=== PATIENT | female | born 1940 | race Caucasian/White ===

== ENCOUNTER 2019-08-13 10:37 | Emergency (ER) | payer MEDICARE ==
[2019-08-13 10:57] VITALS: BP 175/82; PULSE 68; O2SAT 99
--- NOTE | 2019-08-13 11:40 | ERPHSYRPT ---
- History of Present Illness Time Seen by Provider: 08/13/19 11:00 Source: patient Exam Limitations: no limitations Patient Subjective Stated Complaint: Pt c/o of pain in her right leg when she walked yesterday, she then found a lump to the medial distal upper leg that was painful to touch, it does not hurt to walk today but it does hurt to touch, she never noticed any redness or heat coming from it Triage Nursing Assessment: Pt walked into the ER with a stable gait, denies pain on walking, pain to lump on right upper medial leg when touched, area in not red or warm to touch, hypertensive, pulses normal, denies any othe issues at this juliano Physician History: 78 y/o white female presents with tenderness to right medial thigh. noticed yesterday. very localized and superficial. pt concerned about a "blood clot" Method of Injury: other (no injury) Occurred: yesterday Severity of Pain-Max: mild Severity of Pain-Current: mild Modifying Factors: Improves With: other (pressure) Allergies/Adverse Reactions: cephalexin [From Keflex] Allergy (Verified 08/13/19 10:59) hydrocodone Allergy (Verified 08/13/19 10:59) morphine Allergy (Verified 08/13/19 10:59) Penicillins Allergy (Verified 08/13/19 10:59) Sulfa (Sulfonamide Antibiotics) Allergy (Verified 08/13/19 10:59) Home Medications: Amlodipine Besylate 5 mg PO DAILY 08/13/19 [History] Atorvastatin Calcium 20 mg PO DAILY 08/13/19 [History] Clopidogrel Bisulfate [Clopidogrel] 75 mg PO DAILY 08/13/19 [History] Furosemide 20 mg [Lasix 20 mg] 20 mg PO 3XW 08/13/19 [History] Isosorbide Mononitrate [Isosorbide Mononitrate ER] 30 mg PO DAILY 08/13/19 [ History] Levothyroxine Sodium 50 mcg PO DAILY 08/13/19 [History] Metoprolol Succinate 50 mg [Toprol Xl 50 MG] 50 mg PO DAILY 08/13/19 [ History] Nortriptyline HCl 50 mg PO HS 08/13/19 [History] - Review of Systems Constitutional: No Symptoms Eyes: No Symptoms Ears, Nose, & Throat: No Symptoms Respiratory: No Symptoms Cardiac: No Symptoms Abdominal/Gastrointestinal: No Symptoms Genitourinary Symptoms: No Symptoms Musculoskeletal: No Symptoms Skin: No Symptoms Neurological: No Symptoms Psychological: No Symptoms Endocrine: No Symptoms Hematologic/Lymphatic: No Symptoms Immunological/Allergic: No Symptoms All Other Systems: Reviewed and Negative - Past Medical History Pertinent Past Medical History: Yes Neurological History: No Pertinent History ENT History: No Pertinent History Cardiac History: Coronary Artery Disease, High Cholesterol, Hypertension Endocrine Medical History: No Pertinent History Musculoskeletal History: No Pertinent History GI Medical History: No Pertinent History History: Other Psycho-Social History: No Pertinent History Female Reproductive Disorders: No Pertinent History Other Medical History: concusion, prolapsed bladder - Past Surgical History Past Surgical History: Yes Cardiac: Cardiac Stent Respiratory: No Pertinent History Gastrointestinal: No Pertinent History Genitourinary: No Pertinent History Musculoskeletal: No Pertinent History Female Surgical History: Hysterectomy, Tubal Ligation - Social History Smoking Status: Never smoker Exposure to second hand smoke: No Drug Use: none Patient Lives Alone: No - Nursing Vital Signs Nursing Vital Signs: Initial Vital Signs Temperature 98.5 F 08/13/19 10:44 Pulse Rate 68 08/13/19 10:44 Blood Pressure 175/82 08/13/19 10:44 O2 Sat by Pulse Oximetry 99 08/13/19 10:44 Pain Scale Pain Intensity 0 - Physical Exam General Appearance: no apparent distress, alert, anxiety Eyes, Ears, Nose, Throat Exam: normal ENT inspection, moist mucous membranes Neck Exam: normal inspection, non-tender, supple, full range of motion Cardiovascular/Respiratory Exam: normal breath sounds, regular rate/rhythm, no respiratory distress Gastrointestinal/Abdominal Exam: non-tender Back Exam: normal inspection, normal range of motion, No CVA tenderness, No vertebral tenderness Hips Exam: bilateral: non-tender, normal inspection, normal range of motion Legs Exam: right leg: normal inspection, normal range of motion, no evidence of injury, soft tissue tenderness (localized right medial thigh), left leg: non- tender Knees Exam: bilateral knee: non-tender, normal inspection, normal range of motion, no evidence of injury Ankle Exam: bilateral ankle: non-tender, normal inspection, normal range of motion, no evidence of injury Foot Exam: bilateral foot: non-tender, normal inspection, normal range of motion , no evidence of injury Neuro/Tendon Exam: normal sensation, normal motor functions, normal tendon functions Mental Status Exam: alert, oriented x 3, cooperative Skin Exam: normal color, warm SpO2 Interpretation: normal SpO2: 99 O2 Delivery: Room Air Ordered Tests: Active Orders 24 hr Category Date Time Status D-DIMER QUANTITATION Stat Lab 08/13/19 11:40 Completed Lab/Rad Data: Laboratory Results 08/13/19 Range/Units 11:40 D-Dimer 590 H* (215-500) ng/mL - Progress Progress: unchanged Progress Note: 08/13/19 12:12 i reviewed the result of the mildly elevated ddimer. my clinical judgement of low likelihood of a dvt was given to pt. i did also tell her without the venous doppler i could not be 100% certain it was not a dvt. i offered her this study. i discussed alternatives to her. i discussed risks with her and she declines. Counseled pt/family regarding: lab results, diagnosis, need for follow-up - Departure Departure Disposition: Home Clinical Impression: Superficial phlebitis of right leg Condition: Stable Critical Care Time: No Referrals: VITO HANSON NP [Primary Care Provider] - Additional Instructions: warm compresses/heating pad on warm setting to area 2 times daily but not directly on skin. ibuprofen 400mg to 600mg orally with food 3 times daily. follow up with primary doctor for further management
== END 2019-08-13 12:22 | disposition home or self-care (01) ==
LOC: ED 10:37
DX: I80.01 Phlebitis and thrombophlebitis of superficial vessels of right lower extremity (principal); M79.651 Pain in right thigh; Z79.899 Other long term (current) drug therapy; I25.10 Atherosclerotic heart disease of native coronary artery without angina pectoris; E78.00 Pure hypercholesterolemia, unspecified; I10 Essential (primary) hypertension
CPT/HCPCS: 36415; 85379; 99283

== ENCOUNTER 2020-05-12 06:21 | Day surgery (SDC) | payer MEDICARE ==
[2020-05-12] MEDS ORDERED: Lactated Ringers 1,000 ML IV ONE (07:21)
[2020-05-12] MEDS ORDERED: Lactated Ringers 1,000 ML IV SCH (07:30)
[2020-05-12] MEDS ORDERED: DIPRIVAN 200 MG/20 ML IV ONE (07:45)
[2020-05-12] MEDS ORDERED: Ketamine HCl 50 MG/ML ONE (07:45)
--- NOTE | 2020-05-12 09:45 | OP ---
SURGERY DATE/TIME: 05/12/2020 0807 PREOPERATIVE DIAGNOSIS: Dysphagia. POSTOPERATIVE DIAGNOSES: 1) Hiatal hernia. 2) Benign appearing esophageal stricture. 3) Gastritis. PROCEDURE: Esophagogastroduodenoscopy. SURGEON: Dr. Miller. ANESTHESIA: Medications were given by the anesthesia department. BRIEF HISTORY: The patient is a 79 year old white female presenting for endoscopic evaluation. She reports over ten year history of having problems with food sticking in the lower part of her chest. She recently had a meal with her relatives after which she had to cough up the food bolus prompting her to have to come in to be seen. The patient was appraised of the risks of the procedure including the risk of perforation, phlebitis, untoward reaction to medication, bleeding and missed lesions. The patient verbalized her understanding and desired to have the procedure performed. DESCRIPTION OF PROCEDURE: The patient was given the medications by the anesthesia department. She had continuous pulse oximetry, ECG monitoring, intermittent blood pressure monitoring and tidal CO2 monitoring during the examination. She was placed in the left lateral decubitus position. A bite block was placed. The flexible Olympus gastroscope was used to intubate the oropharynx. A view of the larynx was obtained and was normal. The scope was easily introduced in the esophagus which appeared to be normal to the gastroesophageal junction where there appeared to be a benign esophageal stricture. The scope was easily passed through this and stomach was entered. Normal gastric rugal folds were seen. The scope was passed along the greater curvature of the stomach to the antrum which appeared to be moderately erythematous. The scope was passed through the pylorus. The duodenum inspected and found to be essentially normal. The scope is withdrawn towards the stomach. Again, a retroflex view is obtained and revealed hiatal hernia. The scope is redirected towards the gastric antrum and biopsies were obtained to rule out the presence of Helicobacter pylori-type organisms. The scope was withdrawn towards the gastroesophageal junction where biopsies were obtained from several areas around the stricture to be sure that this was indeed benign. The scope is removed from the patient who tolerated the procedure well and was sent back to outpatient recovery in good condition.
[2020-05-12 10:55] VITALS: BP 153/77; PULSE 56; O2SAT 95
== END 2020-05-12 09:45 | disposition home or self-care (01) ==
LOC: SDC 06:21
PROVIDERS: ATTEND Family Medicine
DX: K44.9 Diaphragmatic hernia without obstruction or gangrene (principal); K22.2 Esophageal obstruction; K29.70 Gastritis, unspecified, without bleeding
CPT/HCPCS: 88305; 99100; J2704

== ENCOUNTER 2021-02-08 17:56 | Emergency (ER) | payer MEDICARE ==
[2021-02-08] MEDS ORDERED: BABY ASPIRIN 81 MG CHEW PO ONE (18:04)
[2021-02-08 18:09] VITALS: O2SAT 98
[2021-02-08] MEDS ORDERED: Sodium Chloride 0.9% 1000 ML 1,000 ML IV SCH (18:15)
[2021-02-08] MEDS ORDERED: BABY ASPIRIN 81 MG CHEW ONE (18:16)
[2021-02-08] MEDS ORDERED: Sodium Chloride 0.9% 1000 ML 1,000 ML ONE (18:16)
--- NOTE | 2021-02-08 18:19 | ERPHSYRPT ---
- History of Present Illness Time Seen by Provider: 02/08/21 18:16 Source: patient, family Exam Limitations: no limitations Patient Subjective Stated Complaint: Chest pain Triage Nursing Assessment: Patient brought back to ED via w/c and transferred self to bed. Patient A+O x3. Patient's skin pink, warm and dry. Patient complains of intermittent chest pain for the past few months a heaviness in the chest. Patient currently denies pain. Patient states she was checking her pulse because her HR felt low and it was 47. Lungs clear a/p marvin. 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 For last few days she was having off and on chest pain which lasted for few seconds and it comes and goes. Today when she was checking her blood pressure her pulse was found to be 45 she was also feeling weak and dizzy lightheaded and had another episode of short spell of chest pain so she came to the emergency room. She denies any shortness of breath nausea vomiting diarrhea constipation headache syncopal episode. Timing/Duration: today Severity of Pain-Max: none Severity of Pain-Current: none Modifying Factors: Improves With: nothing Nitro Today/Relief: no nitro taken today Aspirin Treatment Today: no aspirin today Associated Symptoms: denies symptoms Allergies/Adverse Reactions: cephalexin [From Keflex] Allergy (Verified 02/08/21 17:59) hydrocodone Allergy (Verified 02/08/21 17:59) morphine Allergy (Verified 02/08/21 17:59) Penicillins Allergy (Verified 02/08/21 17:59) Sulfa (Sulfonamide Antibiotics) Allergy (Verified 02/08/21 17:59) Home Medications: Amlodipine Besylate 5 mg PO DAILY 08/13/19 [History] Atorvastatin Calcium 20 mg PO DAILY 08/13/19 [History] Clopidogrel Bisulfate [Clopidogrel] 75 mg PO DAILY 08/13/19 [History] Furosemide 20 mg [Lasix 20 mg] 20 mg PO 3XW 08/13/19 [History] Isosorbide Mononitrate [Isosorbide Mononitrate ER] 30 mg PO DAILY 08/13/19 [History] Levothyroxine Sodium 50 mcg PO DAILY 08/13/19 [History] Metoprolol Succinate 50 mg [Toprol Xl 50 MG] 50 mg PO DAILY 08/13/19 [History] Nortriptyline HCl 50 mg PO HS 08/13/19 [History] Hx Influenza Vaccination/Date Given: Yes Hx Pneumococcal Vaccination/Date Given: Yes Immunizations Up to Date: Yes Travel Risk - International Travel Have you traveled outside of the country in past 3 weeks: No - Coronavirus Screening Are you exhibiting any of the following symptoms?: No Close contact with a COVID-19 positive Pt in past 14-21 Days: No - Vaccine Status Have you recieved a Covid-19 vaccination: Yes 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: [employer] - Vaccination Dates Date of 2cond Vaccination (if applicable): 12/30/2020 - Review of Systems Constitutional: No Fever, No Chills Eyes: No Symptoms Ears, Nose, & Throat: No Symptoms Respiratory: No Cough, No Dyspnea Cardiac: Palpitations, No Chest Pain, No Edema, No Syncope Abdominal/Gastrointestinal: No Abdominal Pain, No Nausea, No Vomiting, No Diarrhea Genitourinary Symptoms: No Dysuria Musculoskeletal: No Back Pain, No Neck Pain Skin: No Rash Neurological: No Dizziness, No Focal Weakness, No Sensory Changes Psychological: No Symptoms Endocrine: No Symptoms All Other Systems: Reviewed and Negative - Past Medical History Pertinent Past Medical History: Yes Neurological History: Other ENT History: No Pertinent History Cardiac History: Coronary Artery Disease, High Cholesterol, Hypertension Respiratory History: Other Endocrine Medical History: Hypothyroidism Musculoskeletal History: No Pertinent History GI Medical History: GERD, Other History: Kidney Cancer, Other Psycho-Social History: No Pertinent History Female Reproductive Disorders: Other Other Medical History: concusion, prolapsed bladder, spot on L lung that doctor has been "watching". seeing neurologist "because waking up at night imaging things." having difficulty swallowing - Past Surgical History Past Surgical History: Yes Neuro Surgical History: No Pertinent History Cardiac: Cardiac Catheterization, Cardiac Stent Respiratory: No Pertinent History Gastrointestinal: Appendectomy Genitourinary: Other Musculoskeletal: No Pertinent History Female Surgical History: Hysterectomy, Tubal Ligation Other Surgical History: bladder tied up, partial kidney removal for kidney cancer L kidney, - Social History Smoking Status: Never smoker Exposure to second hand smoke: No Drug Use: none Patient Lives Alone: Yes - Nursing Vital Signs Nursing Vital Signs: Initial Vital Signs Pulse Rate 52 L 02/08/21 17:59 Respiratory Rate 18 02/08/21 17:59 Blood Pressure 159/70 02/08/21 17:59 O2 Sat by Pulse Oximetry 98 02/08/21 17:59 Pain Scale Pain Intensity 0 - Physical Exam General Appearance: no apparent distress, alert Eye Exam: PERRL/EOMI, eyes nml inspection Ears, Nose, Throat Exam: normal ENT inspection, moist mucous membranes Neck Exam: normal inspection, non-tender, supple Respiratory Exam: normal breath sounds, lungs clear, No respiratory distress Cardiovascular Exam: regular rate/rhythm, normal heart sounds, No edema Gastrointestinal/Abdomen Exam: soft, No tenderness, No mass Back Exam: normal inspection, No CVA tenderness, No vertebral tenderness Extremity Exam: normal inspection, normal range of motion Neurologic Exam: alert, oriented x 3, cooperative, normal mood/affect, nml cerebellar function, sensation nml, No motor deficits Skin Exam: normal color, warm, dry Lymphatic Exam: No adenopathy SpO2: 98 - Course Nursing assessment & vital signs reviewed: Yes EKG Interpreted by Me: Sinus Julio, NORMAL ST-T - Radiology Exams Chest X-ray Interpretation: Reviewed by me (cardiomegaly, no acute infiltrate) Ordered Tests: Active Orders 24 hr Category Date Time Status EKG-ER Only STAT Care 02/08/21 18:04 Active IV Insertion STAT Care 02/08/21 18:04 Active Oxygen-ED Only Nasal Cannula 2 lpm Care 02/08/21 18:04 Active CHEST 1 VIEW (PORTABLE) Stat Exams 02/08/21 18:04 Taken CBC W DIFF Stat Lab 02/08/21 18:12 Completed CMP Stat Lab 02/08/21 18:12 Completed TROPONIN Stat Lab 02/08/21 18:12 Completed Medication Summary Generic Name Dose Route Start Last Admin Trade Name Freq PRN Reason Stop Dose Admin Sodium Chloride 1,000 mls @ 50 mls/hr 02/08/21 18:15 02/08/21 18:17 Sodium Chloride 0.9% 1000 Ml IV 03/10/21 18:14 50 mls/hr .Q20H TERESA Administration Discontinued Medications Generic Name Dose Route Start Last Admin Trade Name Freq PRN Reason Stop Dose Admin Aspirin 81 mg 02/08/21 18:04 02/08/21 18:17 Baby Aspirin 81 Mg Chew PO 02/08/21 18:05 81 mg STAT ONE Administration Aspirin Confirm 02/08/21 18:16 Baby Aspirin 81 Mg Chew Administered 04/11/21 18:17 Dose 81 mg .ROUTE .STK-MED ONE Lab/Rad Data: Laboratory Result Diagrams 02/08/21 18:12 02/08/21 18:12 Laboratory Results 02/08/21 02/08/21 Range/Units 18:12 18:12 WBC 5.3 (4.0-10.5) K/mm3 RBC 3.69 L (4.1-5.4) M/mm3 Hgb 12.5 (12.0-16.0) gm/dl Hct 37.3 (35-47) % MCV 101.1 H (78-100) fl MCH 33.9 H (26-32) pg MCHC 33.5 (32-36) g/dl RDW 13.1 (11.5-14.0) % Plt Count 265 (150-450) K/mm3 MPV 10.2 (7.5-11.0) fl Gran % 60.6 (36.0-66.0) % Eos # (Auto) 0.14 (0-0.5) Absolute Lymphs (auto) 1.54 (1.0-4.6) Absolute Monos (auto) 0.41 (0.0-1.3) Lymphocytes % 28.9 (24.0-44.0) % Monocytes % 7.7 (0.0-12.0) % Eosinophils % 2.6 (0.00-5.0) % Basophils % 0.2 (0.0-0.4) % Absolute Granulocytes 3.22 (1.4-6.9) Basophils # 0.01 (0-0.4) Sodium 139 (137-145) mmol/L Potassium 4.5 (3.5-5.1) mmol/L Chloride 106 (98-107) mmol/L Carbon Dioxide 26 (22-30) mmol/L Anion Gap 12.1 (5-15) MEQ/L BUN 18 H (7-17) mg/dL Creatinine 1.25 H (0.52-1.04) mg/dL Estimated GFR 43.8 ML/MIN Glucose 113 H (74-106) mg/dL Calcium 9.3 (8.4-10.2) mg/dL Total Bilirubin 0.50 (0.2-1.3) mg/dL AST 27 (14-36) U/L ALT 15 (0-35) U/L Alkaline Phosphatase 69 (38-126) U/L Troponin I < 0.012 (0.000-0.034) ng/mL Serum Total Protein 7.6 (6.3-8.2) g/dL Albumin 4.3 (3.5-5.0) g/dL - Progress Progress: improved Air Movement: good Blood Culture(s) Obtained: No Antibiotics given: No Counseled pt/family regarding: lab results, diagnosis, need for follow-up, rad results - Departure Departure Disposition: Home Clinical Impression: Chest pain not due to acute coronary syndrome, Bradycardia with 41-50 beats per minute Condition: Stable Critical Care Time: Yes Critical Care Time(excluding separately billable procedures): Critical 30-74 mins Referrals: IFRAH TORRES [Primary Care Provider] - Instructions: Chest Pain (DC), Bradycardia (DC) Additional Instructions: Discharge/Care Plan ELDER ELLIS was seen on 02/08/21 in the Emergency Room. The patient was counseled regarding Diagnosis,Lab results, Imaging studies, need for follow up and when to return to the Emergency Room. Prescriptions given: Discharge Note I have spoken with the patient and/or caregivers. I have explained the patient's condition, diagnosis and treatment plan based on the information available to me at this time. I have answered the patient's and/or caregiver's questions and addressed any concerns. The patient and/or caregivers have as good understanding of the patient's diagnosis, condition and treatment plan as can be expected at this point. The vital signs have been stable. The patient's condition is stable and appropriate for discharge from the emergency department. The patient will pursue further outpatient evaluation with the primary care physician or other designated or consulting physician as outlined in the discharge instructions. The patient and/or caregivers are agreeable to this plan of care and follow-up instructions have been explained in detail. The patient and/or caregivers have received these instruction. The patient/and or caregivers are aware that any significant change in condition or worsening of symptoms should prompt an immediate return to this or the closest emergency department or call 911. ELDER ELLIS was seen on 02/08/21 n the Emergency Room. At that time you were treated for an emergent condition, during your visit Laboratory, Radiology and/or other procedures may have been ordered. It is very important that you follow-up with your Primary Care Physician IFRAH TORRES within the next 24-48 hours to review your Emergency Room visit and the final results of testing that was ordered. Some test results such as Urine Cultures, Blood Cultures, and other cultures if ordered will not be finalized for 24-48 hours. If you do not have a Primary Care Provider please call the medical records department at [phone] to obtain a copy of your results or you may sign into our patient portal to obtain these results by visiting us @ [email or web address] and completing the following steps: 1. Click on the Patient Portal link 2. Click the Patient Self Enrollment Link to complete the enrollment form and entering your 3. Once the enrollment form is completed you will receive an email with a temporary ID and password at the email address you provided. 4. Next choose a user name and password. Your user name must be at least 4 characters long and your password must be at least 4 characters long. 5. Choose a security question from the list and provide your answer to the question. If you already have signed into the Health Portal you may access your Health Care Information 23/05 by the following steps: 1. Login to our website @ [email or web address] 2. Enter your original user name and password. FAQS The [facility] Health Portal is an online tool that contains your Lab Results, Radiology Reports, Visit History, Discharge Instructions and Health Summary Lab and Radiology Results will not be available for 72 hours on the portal. The Portal is a secure site, passwords are encryted and URLs are re-written so they cannot be copied and pasted. You and authorized family members are the only ones who can access your Portal. Also there is a timeout feature that protects your information if you leave the Portal page open. If you have technical difficulty please use the Contact Us link on the page this will allow you to submit any questions you have regarding the Portal or you may contact the Medical Record Department at [phone] ext [phone]. Decrease metoprolol to 25 mg a day
[2021-02-08 18:29] LABS: Absolute Neutrophil Ct (ANC) 3.22 (1.4-6.9); BASOPHIL % 0.2 % (0.0-0.4); Basophil (Absolute #) 0.01 (0-0.4); Eosinophil % 2.6 % (0.00-5.0); Eosinophil (Absolute #) 0.14 (0-0.5); Hematocrit 37.3 % (35-47); Hemoglobin 12.5 gm/dl (12.0-16.0); Lymphocyte (Absolute #) 1.54 (1.0-4.6); Lymphocytes % 28.9 % (24.0-44.0); Mean Cell Volume 101.1 fl (78-100); Mean Corpuscular Hemoglobin 33.9 pg (26-32); Mean Corpuscular Hgb Concent. 33.5 g/dl (32-36); Mean Platelet Volume 10.2 fl (7.5-11.0); Monocyte (Absolute #) 0.41 (0.0-1.3); Monocytes % 7.7 % (0.0-12.0); Neutrophil % 60.6 % (36.0-66.0); Platelet Count 265 K/mm3 (150-450); Red Blood Count 3.69 M/mm3 (4.1-5.4); Red Cell Distribution Width 13.1 % (11.5-14.0); White Blood Count 5.3 K/mm3 (4.0-10.5)
[2021-02-08 18:51] LABS: ALBUMIN 4.3 g/dL (3.5-5.0); ALKALINE PHOSPHATASE 69 U/L (38-126); ANION GAP 12.1 MEQ/L (5-15); BLOOD UREA NITROGEN 18 mg/dL (7-17); CHLORIDE 106 mmol/L (98-107); Calcium 9.3 mg/dL (8.4-10.2); Carbon Dioxide 26 mmol/L (22-30); Creatinine 1 1.25 mg/dL (0.52-1.04); EST GLOMERULAR FILTRATION RATE 43.8 ML/MIN; Potassium 4.5 mmol/L (3.5-5.1); SGOT/AST 27 U/L (14-36); SGPT/ALT 15 U/L (0-35); SODIUM 139 mmol/L (137-145); TROPONIN < 0.012 ng/mL (0.000-0.034); Total Protein 7.6 g/dL (6.3-8.2)
[2021-02-08 18:53] LABS: Glucose 113 mg/dL (74-106)
[2021-02-08 19:05] VITALS: BP 139/65; PULSE 47
--- NOTE | 2021-02-09 08:51 | XRAY ---
Indication: Chest pain. Comparison: None Portable apical lordotic chest hyperinflated and clear with incidental tiny right upper lobe calcified granuloma. Heart borderline enlarged. 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 Impression: Nonacute chest with chronic features.
== END 2021-02-08 19:07 | disposition home or self-care (01) ==
LOC: ED 17:56
DX: I24.9 Acute ischemic heart disease, unspecified (principal); R07.9 Chest pain, unspecified; R00.1 Bradycardia, unspecified; Z79.899 Other long term (current) drug therapy; I25.10 Atherosclerotic heart disease of native coronary artery without angina pectoris; I10 Essential (primary) hypertension; E03.9 Hypothyroidism, unspecified; K21.9 Gastro-esophageal reflux disease without esophagitis; E78.00 Pure hypercholesterolemia, unspecified
CPT/HCPCS: 36000; 36415; 71045; 80053; 84484; 85025; 93005; 99284; 99291; A9270-GY

== ENCOUNTER 2021-09-20 15:13 | Observation (INO) | payer MEDICARE ==
[2021-09-20 16:11] LABS: Absolute Neutrophil Ct (ANC) 3.27 (1.4-6.9); BASOPHIL % 0.2 % (0.0-0.4); Basophil (Absolute #) 0.01 (0-0.4); Eosinophil % 1.7 % (0.00-5.0); Eosinophil (Absolute #) 0.08 (0-0.5); Hematocrit 39.4 % (35-47); Hemoglobin 13.2 gm/dl (12.0-16.0); Lymphocyte (Absolute #) 1.11 (1.0-4.6); Lymphocytes % 22.9 % (24.0-44.0); Mean Corpuscular Hemoglobin 33.5 pg (26-32); Mean Corpuscular Hgb Concent. 33.5 g/dl (32-36); Monocyte (Absolute #) 0.37 (0.0-1.3); Monocytes % 7.6 % (0.0-12.0); Neutrophil % 67.6 % (36.0-66.0); Platelet Count 236 K/mm3 (150-450); Red Blood Count 3.94 M/mm3 (4.1-5.4); Red Cell Distribution Width 12.1 % (11.5-14.0); White Blood Count 4.8 K/mm3 (4.0-10.5)
[2021-09-20 16:17] LABS: INR 1.04 (0.8-3.0); PROTIME 12.3 SECONDS (9.4-12.5)
[2021-09-20 16:20] LABS: PTT 29.2 SECONDS (25.1-36.5)
[2021-09-20 16:30] LABS: ALBUMIN 4.1 g/dL (3.5-5.0); ALKALINE PHOSPHATASE 87 U/L (38-126); ANION GAP 14.6 MEQ/L (5-15); BLOOD UREA NITROGEN 13 mg/dL (7-17); CHLORIDE 101 mmol/L (98-107); Calcium 9.1 mg/dL (8.4-10.2); Carbon Dioxide 28 mmol/L (22-30); Creatinine 1 0.94 mg/dL (0.52-1.04); EST GLOMERULAR FILTRATION RATE > 60.0 ML/MIN; Glucose 112 mg/dL (74-106); NT PRO BNP 390 pg/mL (0-1800); Potassium 3.8 mmol/L (3.5-5.1); SGOT/AST 17 U/L (14-36); SGPT/ALT 11 U/L (0-35); SODIUM 140 mmol/L (137-145); Total Protein 6.9 g/dL (6.3-8.2)
[2021-09-20] MEDS ORDERED: BABY ASPIRIN 81 MG CHEW PO ONE (17:08)
[2021-09-20] MEDS ORDERED: BABY ASPIRIN 81 MG CHEW ONE (17:14)
--- NOTE | 2021-09-20 17:26 | ERPHSYRPT ---
- History of Present Illness Time Seen by Provider: 09/20/21 15:37 Source: patient Exam Limitations: no limitations Patient Subjective Stated Complaint: blurred vision Triage Nursing Assessment: Patient brought into ED via w/c and transferred to be d with assist of 1. Patient A+O x3. Patient's skin pink, warm and dry. Patient's daughter reports her niece called her at 1423 and stated patient's left eye was drooping. Patient currently denies pain or discomfort. Patient's left eye noted to be drooping. Patient's daughter reports on Tuesday patient had some episodes of confusion and dizziness on she had a good day and on Tuesday she had a headache and double vision on Tuesday morning complains of double vision, but it had gotten better throughout the day. As this nurse was triaging patient was able to answer questions appropriately, but the more I was asking questions patient started slurring her speech and unable to give birthday correctly. Patient complains of nausea. Physician History: 80 years old female with history of hypertension, hyperlipidemia, hypothyroidism presented in the ER with chief complaint of diplopia. Patient reports having double vision off and on for the last 4 days with some confusion and dizziness along with headache. Symptoms recurred again around noon time and family noticed some left eye droop. Denies any difficulty speech, focal numbness tingling or weakness. No previous history of stroke. Timing/Duration: day(s) (4), intermittent, improved Severity: moderate Baseline/Normal Cognition: alert oriented x 3 Current Cognition: alert oriented x 3 Baseline Gait: walks w/o assistance Associated Symptoms: confusion, seizures, vision changes Allergies/Adverse Reactions: cephalexin [From Keflex] Allergy (Verified 09/20/21 20:37) hydrocodone Allergy (Verified 09/20/21 20:37) morphine Allergy (Verified 09/20/21 20:37) Penicillins Allergy (Verified 09/20/21 20:37) Sulfa (Sulfonamide Antibiotics) Allergy (Verified 09/20/21 20:37) Home Medications: Amlodipine Besylate 5 mg PO DAILY 08/13/19 [History] Atorvastatin Calcium 20 mg PO QHS 08/13/19 [History] Clopidogrel Bisulfate [Clopidogrel] 75 mg PO DAILY 08/13/19 [History] Furosemide 20 mg [Lasix 20 mg] 20 mg PO 3XW 08/13/19 [History] Isosorbide Mononitrate [Isosorbide Mononitrate ER] 30 mg PO DAILY 08/13/19 [History] Levothyroxine Sodium 50 mcg PO DAILY 08/13/19 [History] Nortriptyline HCl 50 mg PO HS 08/13/19 [History] Carvedilol 3.125 mg [Coreg 3.125 MG] 3.125 mg PO BID 09/20/21 [History] Cholecalciferol (Vitamin D3) [Vitamin D3] 25 mcg PO QHS 09/20/21 [History] Cyanocobalamin (Vitamin B-12) [Vitamin B12] 2,500 mcg PO QHS 09/20/21 [History] Escitalopram Oxalate 10 mg [Lexapro 10 MG] 10 mg PO QHS 09/20/21 [History] Ezetimibe 10 mg [Zetia 10 MG] 10 mg PO DAILY 09/20/21 [History] Ferrous Sulfate, Dried [Iron] 65 mg PO QHS 09/20/21 [History] Levetiracetam [Keppra] 750 mg PO BID 09/20/21 [History] Omeprazole 09/20/21 [History] Ubidecarenone [Coq10] 50 mg PO DAILY 09/20/21 [History] Hx Influenza Vaccination/Date Given: Yes Hx Pneumococcal Vaccination/Date Given: Yes Immunizations Up to Date: Yes Travel Risk - International Travel Have you traveled outside of the country in past 3 weeks: No - Coronavirus Screening Are you exhibiting any of the following symptoms?: No Close contact with a COVID-19 positive Pt in past 14-21 Days: No - Vaccine Status Have you recieved a Covid-19 vaccination: Yes 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: [employer] - Vaccination Dates Date of 2cond Vaccination (if applicable): 12/30/2020 - Review of Systems Constitutional: No Symptoms Eyes: Vision Changes, Double Vision Ears, Nose, & Throat: No Symptoms Respiratory: No Symptoms Cardiac: No Symptoms Abdominal/Gastrointestinal: No Symptoms Genitourinary Symptoms: No Symptoms Musculoskeletal: No Symptoms Skin: No Symptoms Neurological: Headache Psychological: No Symptoms Endocrine: No Symptoms Hematologic/Lymphatic: No Symptoms Immunological/Allergic: No Symptoms - Past Medical History Pertinent Past Medical History: Yes Neurological History: Other ENT History: No Pertinent History Cardiac History: Coronary Artery Disease, High Cholesterol, Hypertension Respiratory History: Other Endocrine Medical History: Hypothyroidism Musculoskeletal History: No Pertinent History GI Medical History: GERD, Other History: Kidney Cancer, Other Psycho-Social History: No Pertinent History Female Reproductive Disorders: Other Other Medical History: concusion, prolapsed bladder, spot on L lung that doctor has been "watching". seeing neurologist "because waking up at night imaging things." having difficulty swallowing - Past Surgical History Past Surgical History: Yes Neuro Surgical History: No Pertinent History Cardiac: Cardiac Catheterization, Cardiac Stent Respiratory: No Pertinent History Gastrointestinal: Appendectomy Genitourinary: Other Musculoskeletal: No Pertinent History Female Surgical History: Hysterectomy, Tubal Ligation Other Surgical History: bladder tied up, partial kidney removal for kidney cancer L kidney, - Social History Smoking Status: Never smoker Exposure to second hand smoke: No Drug Use: none Patient Lives Alone: Yes - Nursing Vital Signs Nursing Vital Signs: Initial Vital Signs Pulse Rate 54 L 09/20/21 15:52 Respiratory Rate 18 09/20/21 15:52 Blood Pressure 177/80 09/20/21 15:52 O2 Sat by Pulse Oximetry 97 09/20/21 15:52 Pain Scale Pain Intensity 0 - Jorge Coma Scale Best Eye Response (Jorge): (4) open spontaneously Best Verbal Response (Jorge): (5) oriented Best Motor Response ([place]): (6) obeys commands [place] Total: 15 - Physical Exam General Appearance: no apparent distress, alert Eye Exam: right eye: normal inspection, EOMI, left eye: abnormal EOM, other (Left eyelid droop/lid lag, sluggish movements on the medial side.), bilateral eye: PERRL Ears, Nose, Throat Exam: normal ENT inspection, TMs normal, pharynx normal Neck Exam: normal inspection, non-tender, supple, full range of motion Respiratory: normal breath sounds, lungs clear Cardiovascular: normal heart sounds, bradycardia Gastrointestinal: soft, normal bowel sounds Back Exam: normal inspection, normal range of motion Extremity Exam: normal inspection, normal range of motion, pelvis stable Mental Status: alert, oriented x 3, 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 Exam: normal hearing, normal speech Coordination/Gait: normal finger to nose Motor/Sensory: no sensory deficit, no pronator drift, weak motor strength LUE DTR: bicep (R): 2+, bicep (L): 2+, tricep (R): 2+, tricep (L): 2+, knee (R): 2+, knee (L): 2+ Skin Exam: normal color SpO2 Interpretation: normal SpO2: 97 O2 Delivery: Room Air - Course EKG Interpreted by Me: RATE (57), Sinus Rhythm, NORMAL AXIS, Left Bundle Branch Block, Non-specific ST Changes Ordered Tests: Medication Summary Discontinued Medications Generic Name Dose Route Start Last Admin Trade Name Freq PRN Reason Stop Dose Admin Acetaminophen 650 mg 09/20/21 20:28 Acetaminophen 325 Mg Tablet PO 10/20/21 20:27 Q4H PRN PRN PAIN AND/OR FEVER Albuterol/Ipratropium 3 ml 09/20/21 20:28 Ipratropium/Albuterol Sulfate 3 Ml Ampul.Neb IH 10/20/21 20:27 Q4HPRN PRN SHORTNESS OF BREATH/WHEEZING Amlodipine Besylate 5 mg 09/21/21 10:00 09/21/21 09:41 Amlodipine Besylate 5 Mg Tablet PO 10/21/21 09:59 5 mg DAILY TERESA Administration Aspirin 81 mg 09/20/21 17:08 09/20/21 17:16 Aspirin 81 Mg Tab.Chew PO 09/20/21 17:09 81 mg STAT ONE Administration Aspirin Confirm 09/20/21 17:14 Aspirin 81 Mg Tab.Chew Administered 09/20/21 17:15 Dose 81 mg .ROUTE .STK-MED ONE Aspirin 81 mg 09/21/21 10:00 09/21/21 09:41 Aspirin 81 Mg Tablet.Ec PO 10/21/21 09:59 81 mg DAILY TERESA Administration Carvedilol 3.125 mg 09/20/21 22:00 09/20/21 22:52 Carvedilol 3.125 Mg Tablet PO 09/20/21 22:01 3.125 mg ONCE ONE Administration Carvedilol 3.125 mg 09/21/21 10:00 09/21/21 09:42 Carvedilol 3.125 Mg Tablet PO 10/21/21 09:59 3.125 mg BID TERESA Administration Clopidogrel Bisulfate 75 mg 09/21/21 10:00 09/21/21 09:42 Clopidogrel Bisulfate 75 Mg Tablet PO 10/21/21 09:59 75 mg DAILY TERESA Administration Cyanocobalamin 2,500 mcg 09/20/21 22:00 09/20/21 22:50 Cyanocobalamin 500 Mcg Tablet PO 09/20/21 22:01 2,500 mcg ONCE ONE Administration Cyanocobalamin 2,500 mcg 09/21/21 22:00 Cyanocobalamin 500 Mcg Tablet PO 10/21/21 21:59 QHS TERESA Ezetimibe 10 mg 09/21/21 10:00 09/21/21 09:42 Ezetimibe 10 Mg Tab PO 10/21/21 09:59 10 mg DAILY TERESA Administration Escitalopram Oxalate 10 mg 09/20/21 22:00 09/20/21 22:52 Escitalopram Oxalate 10 Mg Tablet PO 09/20/21 22:01 10 mg ONCE ONE Administration Escitalopram Oxalate 10 mg 09/21/21 22:00 Escitalopram Oxalate 10 Mg Tablet PO 10/21/21 21:59 QHS TERESA Ferrous Sulfate 325 mg 09/21/21 22:00 Ferrous Sulfate 325 Mg Tablet PO 10/21/21 21:59 QHS TERESA Furosemide 20 mg 09/22/21 10:00 Furosemide 20 Mg Tablet PO 10/22/21 09:59 QOD TERESA Isosorbide Mononitrate 30 mg 09/21/21 10:00 09/21/21 09:42 Isosorbide Mononitrate 30 Mg Tab PO 10/21/21 09:59 30 mg DAILY TERESA Administration Levetiracetam 750 mg 09/20/21 22:00 09/20/21 22:51 Levetiracetam 500 Mg Tablet PO 09/20/21 22:01 750 mg ONCE ONE Administration Levetiracetam 250 mg 09/21/21 10:00 09/21/21 09:42 Levetiracetam 250 Mg Tablet PO 10/21/21 09:59 250 mg BID TERESA Administration Levetiracetam 500 mg 09/21/21 10:00 09/21/21 09:42 Levetiracetam 500 Mg Tablet PO 10/21/21 09:59 500 mg BID TERESA Administration Levothyroxine Sodium 50 mcg 09/21/21 10:00 09/21/21 09:42 Levothyroxine Sodium 50 Mcg Tablet PO 10/21/21 09:59 50 mcg DAILY TERESA Administration Miscellaneous Information 1 each 09/21/21 11:30 Medication Intervention 1 Each Each PO 10/21/21 11:29 .RN TO CHECK ON TERESA Miscellaneous Information 1 each 09/21/21 11:30 Medication Intervention 1 Each Each PO 10/21/21 11:29 .RN TO CHECK ON TERESA Nortriptyline HCl 50 mg 09/21/21 22:00 Nortriptyline Hcl 50 Mg Capsule PO 10/21/21 21:59 HS TERESA Pantoprazole Sodium 40 mg 09/21/21 10:00 Pantoprazole 40 Mg Vial IV 10/21/21 09:59 Q24H10 TERESA Pantoprazole Sodium 40 mg 09/21/21 10:00 09/21/21 09:48 Protonix (Pantoprazole) 40 Mg Tablet PO 10/21/21 09:59 40 mg DAILY TERESA Administration Simvastatin 20 mg 09/21/21 22:00 Simvastatin 20 Mg Tablet PO 10/21/21 21:59 QHS [facility] Lab/Rad Data: Laboratory Result Diagrams 09/20/21 16:00 09/20/21 16:00 Laboratory Results 09/20/21 09/20/21 09/20/21 Range/Units 17:56 17:50 16:00 WBC (4.0-10.5) K/mm3 RBC (4.1-5.4) M/mm3 Hgb (12.0-16.0) gm/dl Hct (35-47) % MCV (78-100) fl MCH (26-32) pg MCHC (32-36) g/dl RDW (11.5-14.0) % Plt Count (150-450) K/mm3 MPV (7.5-11.0) fl Gran % (36.0-66.0) % Eos # (Auto) (0-0.5) Absolute Lymphs (auto) (1.0-4.6) Absolute Monos (auto) (0.0-1.3) Lymphocytes % (24.0-44.0) % Monocytes % (0.0-12.0) % Eosinophils % (0.00-5.0) % Basophils % (0.0-0.4) % Absolute Granulocytes (1.4-6.9) Basophils # (0-0.4) PT (9.4-12.5) SECONDS INR (0.8-3.0) APTT (25.1-36.5) SECONDS Sodium (137-145) mmol/L Potassium (3.5-5.1) mmol/L Chloride (98-107) mmol/L Carbon Dioxide (22-30) mmol/L Anion Gap (5-15) MEQ/L BUN (7-17) mg/dL Creatinine (0.52-1.04) mg/dL Estimated GFR ML/MIN Glucose (74-106) mg/dL Calcium (8.4-10.2) mg/dL Total Bilirubin (0.2-1.3) mg/dL AST (14-36) U/L ALT (0-35) U/L Alkaline Phosphatase (38-126) U/L Troponin I < 0.012 < 0.012 (0.000-0.034) ng/mL NT-Pro-B Natriuret Pep (0-1800) pg/mL Serum Total Protein (6.3-8.2) g/dL Albumin (3.5-5.0) g/dL Influenza Type A Ag NEGATIVE (NEGATIVE) Influenza Type B Ag NEGATIVE (NEGATIVE) RSV (PCR) NEGATIVE (Negative) SARS-CoV-2 (PCR) NEGATIVE (NEGATIVE) 09/20/21 09/20/21 09/20/21 Range/Units 16:00 16:00 16:00 WBC 4.8 (4.0-10.5) K/mm3 RBC 3.94 L (4.1-5.4) M/mm3 Hgb 13.2 (12.0-16.0) gm/dl Hct 39.4 (35-47) % MCV 100.0 (78-100) fl MCH 33.5 H (26-32) pg MCHC 33.5 (32-36) g/dl RDW 12.1 (11.5-14.0) % Plt Count 236 (150-450) K/mm3 MPV 10.0 (7.5-11.0) fl Gran % 67.6 H (36.0-66.0) % Eos # (Auto) 0.08 (0-0.5) Absolute Lymphs (auto) 1.11 (1.0-4.6) Absolute Monos (auto) 0.37 (0.0-1.3) Lymphocytes % 22.9 L (24.0-44.0) % Monocytes % 7.6 (0.0-12.0) % Eosinophils % 1.7 (0.00-5.0) % Basophils % 0.2 (0.0-0.4) % Absolute Granulocytes 3.27 (1.4-6.9) Basophils # 0.01 (0-0.4) PT 12.3 (9.4-12.5) SECONDS INR 1.04 (0.8-3.0) APTT 29.2 (25.1-36.5) SECONDS Sodium 140 (137-145) mmol/L Potassium 3.8 (3.5-5.1) mmol/L Chloride 101 (98-107) mmol/L Carbon Dioxide 28 (22-30) mmol/L Anion Gap 14.6 (5-15) MEQ/L BUN 13 (7-17) mg/dL Creatinine 0.94 (0.52-1.04) mg/dL Estimated GFR > 60.0 ML/MIN Glucose 112 H (74-106) mg/dL Calcium 9.1 (8.4-10.2) mg/dL Total Bilirubin 0.60 (0.2-1.3) mg/dL AST 17 (14-36) U/L ALT 11 (0-35) U/L Alkaline Phosphatase 87 (38-126) U/L Troponin I (0.000-0.034) ng/mL NT-Pro-B Natriuret Pep 390 (0-1800) pg/mL Serum Total Protein 6.9 (6.3-8.2) g/dL Albumin 4.1 (3.5-5.0) g/dL Influenza Type A Ag (NEGATIVE) Influenza Type B Ag (NEGATIVE) RSV (PCR) (Negative) SARS-CoV-2 (PCR) (NEGATIVE) - Progress Progress: unchanged Progress Note: 09/20/21 17:34 Patient has left eye droop with abnormal left eye movement to the medial. CT head is negative for any acute finding. She does have some weak rn night in the left upper extremity. Lab work grossly unremarkable. Neurology has evaluated patient and recommended CTA, adding 81 mg aspirin and MRI and admission to [facility]. Plan discussed with patient and she agrees with it. Discussed with Dr. Thapa, reviewed history work-up and neurology recommendation and agree with admission. Will see patient in: hospital (observation) Counseled pt/family regarding: lab results, diagnosis, need for follow-up, rad results - Departure Departure Disposition: Observation Clinical Impression: Stroke Qualifiers: CVA mechanism: unspecified Qualified Code(s): I63.9 - Cerebral infarction, unspecified Condition: Stable Critical Care Time: Yes Critical Care Time(excluding separately billable procedures): Critical 30-74 mins
[2021-09-20 18:37] LABS: INFLUENZA A NEGATIVE (NEGATIVE); INFLUENZA B NEGATIVE (NEGATIVE); RESPIRATORY SYNCTIAL VIRUS NEGATIVE (Negative); SARS-CoV-2 Xpert Express NEGATIVE (NEGATIVE)
--- NOTE | 2021-09-20 19:02 | XRAY ---
Indication: Double vision. Stroke. Multiple contiguous axial images obtained through the head without contrast. Comparison: December 12, 2020. Again age-appropriate global atrophy, mild periventricular degenerative micro-ischemia, and small right external capsule remote infarct. No acute intracranial hemorrhage, abnormal extra-axial fluid collection, or mass effect. Fourth ventricle is midline without hydrocephalus. Bony calvarium intact. Visualized paranasal sinuses and mastoid air cells are clear. Impression: 1. Stable atrophy, degenerative micro-ischemia, and small old infarct right external capsule. 2. No new/acute intracranial abnormalities. Comment: Preliminary interpretation made by [facility]. No critical discrepancy.
[2021-09-20] MEDS ORDERED: TYLENOL 325 MG PO PRN (20:28)
[2021-09-20] MEDS ORDERED: DUONEB 0.5-3 MG/3 ml Neb IH PRN (20:28)
[2021-09-20] MEDS ORDERED: KEPPRA 500 MG PO ONE (22:00)
[2021-09-20] MEDS ORDERED: Vitamin B-12 500 MCG PO ONE (22:00)
[2021-09-20] MEDS ORDERED: Lexapro 10 MG PO ONE (22:00)
[2021-09-20] MEDS ORDERED: Coreg 3.125 MG PO ONE (22:00)
[2021-09-21 05:57] LABS: Absolute Neutrophil Ct (ANC) 2.96 (1.4-6.9); BASOPHIL % 0.2 % (0.0-0.4); Basophil (Absolute #) 0.01 (0-0.4); Eosinophil % 2.2 % (0.00-5.0); Hematocrit 39.9 % (35-47); Hemoglobin 12.9 gm/dl (12.0-16.0); Lymphocyte (Absolute #) 1.12 (1.0-4.6); Lymphocytes % 24.6 % (24.0-44.0); Mean Cell Volume 100.5 fl (78-100); Mean Corpuscular Hemoglobin 32.5 pg (26-32); Mean Corpuscular Hgb Concent. 32.3 g/dl (32-36); Mean Platelet Volume 10.3 fl (7.5-11.0); Monocyte (Absolute #) 0.37 (0.0-1.3); Monocytes % 8.1 % (0.0-12.0); Neutrophil % 64.9 % (36.0-66.0); Platelet Count 196 K/mm3 (150-450); Red Blood Count 3.97 M/mm3 (4.1-5.4); Red Cell Distribution Width 12.3 % (11.5-14.0); White Blood Count 4.6 K/mm3 (4.0-10.5)
[2021-09-21 06:10] LABS: ANION GAP 11.2 MEQ/L (5-15); BILIRUBIN,TOTAL 0.6 mg/dL (0.2-1.3); Calcium 9.1 mg/dL (8.4-10.2); EST GLOMERULAR FILTRATION RATE 56.7 ML/MIN; Potassium 4.1 mmol/L (3.5-5.1); Total Protein 6.7 g/dL (6.3-8.2)
--- NOTE | 2021-09-21 08:39 | XRAY ---
Indication: Stroke symptoms. Comparison: February 08, 2021. Portable chest remains hyperinflated and clear with incidental tiny right upper lobe calcified granuloma. Heart not enlarged. Bony thorax intact again with osteopenia, degenerative changes, and scoliosis. No new/acute findings.
--- NOTE | 2021-09-21 09:12 | XRAY ---
Indication: Double vision, headache, and neck pain. Two-dimensional contrast-enhanced CTA neck performed using 100 cc Isovue 370 contrast. Two-dimensional sagittal and coronal reformatted images obtained. Additional 3-dimensional reformatted images obtained using a separate workstation. Comparison: None Aortic arch is minimally arteriosclerotic without aneurysm/dissection. Widely patent right brachiocephalic, left common carotid, and left subclavian arteries with very minimal calcifications at the origin of the left subclavian artery. Examination of the right carotid circulation demonstrates widely patent common carotid and carotid bulb. Mild arteriosclerotic calcifications at the origin of the internal carotid artery produces 30-40 % stenosis. Very minimal calcifications at the origin of the external carotid artery. Examination of the left carotid circulation demonstrates widely patent common carotid, carotid bulb, and external carotid artery. Minimal calcifications in the proximal internal carotid artery. Vertebral arteries are bilaterally patent. Parotid and submandibular glands are bilaterally patent. A few subcentimeter cervical and submandibular lymph nodes bilaterally. No pathologic lymphadenopathy. Supra-and infraglottic airway widely patent. Osseous structures intact with osteopenia and mild C4-C7 degenerative changes. Lung apices are clear. CTA head reported separately. Impression: 1. Minimal/mild arteriosclerotic calcifications bilaterally as detailed with 30-40 % stenosis origin of the right internal carotid artery. 2. Incidental osteopenia and C4-C7 degenerative changes. Comment: Preliminary interpretation made by [facility]. No critical discrepancy.
--- NOTE | 2021-09-21 09:14 | XRAY ---
Indication: Double vision, headache, and neck pain. Two-dimensional contrast-enhanced CTA head performed using 100 cc Isovue 370 contrast. Two-dimensional sagittal and coronal reformatted images obtained. Additional 3-dimensional reformatted images obtained using a separate workstation. Comparison: None CTA neck reported separately. Distal internal carotid arteries are bilaterally symmetric with minimal parasellar arteriosclerotic calcifications bilaterally. No critical stenosis or obstruction. Normal carotid terminus with normal branching A1 and M1 segments bilaterally. More distal anterior cerebral, middle cerebral, anterior communicating, and posterior communicating arteries are normal in CTA appearance. Normal CTA appearance to the basilar artery, left/right posterior cerebral, and left/right superior cerebellar arteries. Venous drainage/sinuses are unremarkable. No abnormal enhancing intra or extra-axial mass. Impression: Minimal arteriosclerotic calcifications both parasellar internal carotid arteries without critical stenosis/obstruction. Remaining CTA head with contrast exam is negative. Comment: Preliminary interpretation made by [facility]. No critical discrepancy.
[2021-09-21] MEDS ORDERED: Keppra 250 MG PO SCH (10:00)
[2021-09-21] MEDS ORDERED: NON-FORMULARY ITEM (Ubidecarenone [Coq10] 50 MG Tab.Chew) PO SCH (10:00)
[2021-09-21] MEDS ORDERED: ECOTRIN 81 MG PO SCH ×2 (10:00)
[2021-09-21] MEDS ORDERED: KEPPRA 500 MG PO SCH (10:00)
[2021-09-21] MEDS ORDERED: NORVASC 5 MG PO SCH (10:00)
[2021-09-21] MEDS ORDERED: Zetia 10 MG PO SCH (10:00)
[2021-09-21] MEDS ORDERED: Protonix 40MG Tablet PO SCH (10:00)
[2021-09-21] MEDS ORDERED: PROTONIX 40 MG IV IV SCH (10:00)
[2021-09-21] MEDS ORDERED: Imdur 30 MG PO SCH (10:00)
[2021-09-21] MEDS ORDERED: SYNTHROID 50 MCG PO SCH (10:00)
[2021-09-21] MEDS ORDERED: PLAVIX 75 MG Tablet PO SCH (10:00)
[2021-09-21] MEDS ORDERED: NON-FORMULARY ITEM (Levetiracetam [Keppra] 750 MG Tablet) PO SCH (10:00)
[2021-09-21] MEDS ORDERED: Coreg 3.125 MG PO SCH (10:00)
[2021-09-21] MEDS ORDERED: MEDICATION INTERVENTION PO SCH ×2 (11:30)
--- NOTE | 2021-09-21 13:14 | XRAY ---
Indication: Left eye blurred vision and left sided weakness. Stroke. Sagittal, coronal, and axial MRI brain performed using pre and post T1, T2, FLAIR, diffusion, and ADC sequences. 10 cc Dotarem contrast used. Comparison: None Several images are slightly degraded by motion artifact. There is age-appropriate global atrophy, mild/moderate periventricular degenerative micro-ischemia bilaterally, and small remote curvilinear infarct adjacent to right frontal horn. No acute intracranial hemorrhage, abnormal extra-axial fluid collection, or mass effect. Diffusion images are negative for restricted signal. Negative for mesial temporal sclerosis. Following gadolinium, there is no abnormal enhancing intra or extra-axial mass. Fourth ventricle is midline without hydrocephalus. 7/8 cranial nerve complex bilaterally symmetric. Normal flow void signal within the major intracerebral circulation. Normal appearing craniocervical junction and sella turcica. Paranasal sinuses are clear. Impression: 1. Normal aging brain including atrophy and degenerative micro-ischemia. 2. Small old infarct adjacent right frontal horn. 3. Remaining MRI brain with contrast exam is negative.
[2021-09-21 17:08] VITALS: BP 169/67; PULSE 53
[2021-09-21] MEDS ORDERED: NORTRIPTYLINE HCL PO SCH (22:00)
[2021-09-21] MEDS ORDERED: FERROUS SULFATE DRIED 159 MG PO SCH (22:00)
[2021-09-21] MEDS ORDERED: NON-FORMULARY ITEM (Atorvastatin Calcium [Atorvastatin Calcium] 20 MG Tablet) PO SCH (22:00)
[2021-09-21] MEDS ORDERED: NON-FORMULARY ITEM (Cyanocobalamin (Vitamin B-12) [Vitamin B12] 2,500 MCG Tablet) PO SCH (22:00)
[2021-09-21] MEDS ORDERED: FEOSOL 325 MG PO SCH (22:00)
[2021-09-21] MEDS ORDERED: Lexapro 10 MG PO SCH (22:00)
[2021-09-21] MEDS ORDERED: VITAMIN D PO SCH (22:00)
[2021-09-21] MEDS ORDERED: Vitamin B-12 500 MCG PO SCH (22:00)
[2021-09-21] MEDS ORDERED: NON-FORMULARY ITEM (Nortriptyline Hcl [Nortriptyline Hcl] 25 MG Capsule) PO SCH (22:00)
[2021-09-21] MEDS ORDERED: ZOCOR 20MG PO SCH (22:00)
[2021-09-22] MEDS ORDERED: LASIX 20 MG PO SCH (10:00)
[2021-09-23 14:40] VITALS: O2SAT 97
--- NOTE | 2021-10-08 08:55 | SSS ---
DISCHARGE DIAGNOSES: 1) TRANSIENT ISCHEMIC ATTACK. 2) DIPLOPIA. HISTORY: The patient is an 80-year-old white female who presented to the emergency room after having called her daughter and niece. The patient reported that she had some drooping of the eye and some double vision. The patient was evaluated in the emergency room and admitted for further evaluation and management. PAST MEDICAL/SURGICAL HISTORY: The patient's medical history is significant for coronary artery disease, hyperlipidemia, hypertension and hypothyroidism. She has history otherwise of concussion, prolapsed bladder. The patient has been following with a neurologist as well. She has had previous cardiac catheterization with stent placed. Appendectomy, hysterectomy, partial nephrectomy for left kidney cancer. HOME MEDICATIONS: Amlodipine 5 mg a day, atorvastatin 20 mg a day, Plavix 75 mg a day, Lasix 20 mg a day, isosorbide 30 mg a day, levothyroxine 50 mcg a day, nortriptyline 50 mg a day, carvedilol 3.125 twice daily, vitamin D supplement, vitamin B12 supplement, escitalopram 10 mg at night, iron 65 mg a day, Keppra 750 mg b.i.d., omeprazole 20 mg a day, CoQ10 50 mg a day. ALLERGIES: MORPHINE. PENICILLIN. SULFA. HYDROCODONE. CEPHALEXIN. PHYSICAL EXAMINATION: VITAL SIGNS: The patient's vital signs on admission showed temperature to be afebrile. Her pulse is 54, respiratory rate 18, blood pressure 177/90. O2 saturation of 97%. HEENT: Normocephalic, atraumatic. Pupils were equal round reactive to light. Extraocular movements appeared to be somewhat off in her gaze in regards to light reflection not being equal but this was somewhat subtle. The patient reported she was having double vision at the time. Oropharynx is pink and moist. NECK: Supple without lymphadenopathy, thyromegaly or JVD. CHEST: Clear to auscultation. HEART: Regular rate and rhythm without murmurs, rubs or gallops. ABDOMEN: Soft. No palpable masses. EXTREMITIES: Without cyanosis, clubbing or edema. NEUROLOGIC: The patient is currently alert and oriented x3 with a possible disconjugate gaze. Otherwise, neurologic findings were essentially in the normal range. The patient did have a consultation by tele-neurology who recommended MRI of the brain and this was accomplished the next morning and revealed a normal aging brain with atrophy and degenerative micro-ischemic changes, small old infarct in the right lateral horn. Otherwise, the MRI was essentially normal with no obvious CVA in evolution. LAB DATA AND TESTS: The patient's laboratory studies showed a white count in the normal range of 4.8, hemoglobin 13.2 and PLT count was 236,000. Sugar was 107 nonfasting, BUN 10, creatinine 1.0. Electrolytes and liver enzymes were essentially normal. Troponin was less than 0.012. Repeat on glucose 09/20/2021 at 1600 hours was 112. She had a negative COVID test, negative influenza, negative RSV. HOSPITAL COURSE: After the patient was monitored overnight and revealed essentially that there were no acute events occurring but with a previous infarct. The patient during my exam otherwise was alert and oriented x3 with no obvious focal deficits other than slight disconjugate gaze likely explaining the double vision. The patient was treated otherwise with IV fluids, MRI was obtained and the patient was otherwise felt to be back to her normal state of health. The patient was allowed to discharge home with close observation by her family member, particularly her daughter. We will make arrangements for her to see a neurologist post-hospital stay and follow up in our office in approximately one week. She is to return if she has any further new problems.
== END 2021-09-21 14:00 | disposition home or self-care (01) ==
LOC: ED 15:13 → MED SURG 20:24
PROVIDERS: ADMIT Family Medicine; ATTEND Family Medicine
DX: G45.9 Transient cerebral ischemic attack, unspecified (principal); H53.2 Diplopia; H53.8 Other visual disturbances; R41.0 Disorientation, unspecified; R51.9 Headache, unspecified; E03.9 Hypothyroidism, unspecified; I10 Essential (primary) hypertension; E78.5 Hyperlipidemia, unspecified; R11.0 Nausea; Z20.828 Contact with and (suspected) exposure to other viral communicable diseases; Z79.899 Other long term (current) drug therapy; Z79.01 Long term (current) use of anticoagulants; E78.00 Pure hypercholesterolemia, unspecified
CPT/HCPCS: 0241U; 36000; 36415; 70450; 70496; 70498; 70553; 71045; 80053; 83880; 84484; 85025; 85610; 85730; 93005; 93041; 93268; 97161; 99285; 99291; G0378; A9270-GY